=== PATIENT | female | born 1955 | race Hispanic/Latino ===

== ENCOUNTER 2022-12-28 14:04 | Inpatient (IN) | payer OTHER ==
[2023-01-02 13:57] VITALS: BMI 25.3
[2023-01-02] MEDS ORDERED: GLUCAGON 1 MG/VIAL IM PRN (14:07)
[2023-01-02] MEDS ORDERED: D10W 250 ML BAG IV PRN (14:07)
[2023-01-02] MEDS ORDERED: methocarbamoL 750 MG TAB PO PRN (14:16)
[2023-01-02] MEDS ORDERED: POLYETHYL GLY 3350 17 GM/DOSE PO PRN (14:18)
[2023-01-02] MEDS: INSULIN -REGULAR HUMAN 50 UNIT/0.5 ML ML SQ SCH ×2 (16:30→20:51)
[2023-01-02] MEDS: METFORMIN HCL 500 MG TAB PO SCH (17:02)
[2023-01-02] MEDS: ENOXAPARIN 40 MG/0.4 ML SQ SCH (17:02)
[2023-01-02] MEDS ORDERED: levETIRAcetam 500 MG TAB PO SCH (20:00)
[2023-01-02] MEDS ORDERED: APIXABAN 2.5 MG TABLET PO SCH (20:00)
[2023-01-02] MEDS: DOCUSATE NA/SENNA CONC 1 TAB PO PRN (20:50)
[2023-01-02] MEDS: ATORVASTATIN 40 MG TAB PO SCH (20:51)
[2023-01-02] MEDS: levETIRAcetam 500 MG TAB PO SCH (20:51)
[2023-01-02] MEDS: PHENYTOIN ER 100 MG CAP PO SCH (20:51)
[2023-01-02] MEDS: LACOSAMIDE 50 MG TABLET PO SCH (20:51)
[2023-01-02] MEDS: CEPHALEXIN 250 MG CAP PO SCH (20:51)
[2023-01-02] MEDS ORDERED: CEPHALEXIN 250 MG CAP PO SCH (21:00)
[2023-01-02 23:45] LABS: Specific Gravity 1.007 (1.005-1.030); Urine Bacteria None Seen /HPF (<20); Urine Bilirubin NEGATIVE (Negative); Urine Blood Negative (Negative); Urine Clarity Clear (Clear); Urine Color Colorless (Yellow); Urine Glucose NEGATIVE (Negative); Urine Mucus Slight /HPF (None Seen); Urine Protein NEGATIVE (Negative); Urine RBC <5 /HPF (None Seen); Urine Urobilinogen Normal (Normal); Urine pH 6.5 (5.0-7.0)
[2023-01-03 06:40] LABS: Absolute Lymphocytes (CBC) 2.7 K/uL (0.7-4.9); Hematocrit 33.1 % (36.0-45.0); MCV 91.7 fL (80-100); MPV 7.2 fL (7.6-11.3); Platelets 434 thou/uL (152-406); RBC Red Blood Cell Count 3.61 M/uL (3.86-4.86)
[2023-01-03 07:14] LABS: Albumin 2.5 g/dL (3.4-5.0); Magnesium 1.8 mg/dL (1.6-2.4); Phenytoin (Dilantin) Level 13.8 mcg/mL (10.0-20.0); Potassium 3.9 mEq/L (3.5-5.1); Prealbumin 19.6 mg/dL (20-40)
[2023-01-03] MEDS: INSULIN -REGULAR HUMAN 50 UNIT/0.5 ML ML SQ SCH ×4 (07:30→19:21)
[2023-01-03] MEDS: INSULIN GLARGINE 100 UNIT/ML SQ SCH (07:40)
[2023-01-03] MEDS: LOSARTAN POTASSIUM 50 MG TABLET PO SCH (07:40)
[2023-01-03] MEDS: CEPHALEXIN 250 MG CAP PO SCH ×3 (07:41→19:20)
[2023-01-03] MEDS: levETIRAcetam 500 MG TAB PO SCH ×2 (07:41→19:20)
[2023-01-03] MEDS: PHENYTOIN ER 100 MG CAP PO SCH ×2 (07:41→19:21)
[2023-01-03] MEDS: LACOSAMIDE 50 MG TABLET PO SCH ×2 (07:41→19:21)
[2023-01-03] MEDS: ASPIRIN EC 81 MG TAB PO SCH (07:42)
[2023-01-03] MEDS: CYANOCOBALAMIN 1,000 MCG TAB PO SCH (07:42)
[2023-01-03] MEDS: METFORMIN HCL 500 MG TAB PO SCH ×2 (07:42→16:34)
[2023-01-03] MEDS ORDERED: INSULIN GLARGINE SQ SCH (08:00)
--- NOTE | 2023-01-03 16:29 | HP ---
Date of Admission: 01/02/2023 Time Of Service: 11:30 a.m. Chief Complaint: Multiple seizures. Patient's daughter is at the bedside and the patient is in the midst of aphasia following her seizure and is unable to give a clear answer. History Of Present Illness: Ms. Leslye Browning is a 67-year-old right-handed patient with hyp ertension, dyslipidemia, diabetes mellitus type 2, left temporal lobe epilepsy, recurrent cystitis, r ecent pulmonary embolus, and is currently on Eliquis, in addition to B12 deficiency and chronic confu marianela with multiple seizures and confusion following seizures. 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 The patient's daughter noted that she has had a recent prolonged seizure, came to the hospital and was loaded with Keppra, sent home and she however had worsening right-sided weak ness following the seizure and confusion. The patient's daughter says that when she has seizures, sh e may take up to a day to recover to her baseline where she can interact and follow simple commands. She used the arms and her legs where there is no obvious weakness from [id number]. She was seen e magdy in the hospital on September 04, where she had right-sided weakness with confusion and it was felt t o be due to a recent stroke and she did receive TNKase. MRI of the brain showed no acute or subacute infarct. However, the EEG showed a left hemispheric epileptogenic activity in the temporal lobe. S he was discharged and then readmitted on September 25 for more confusion, right upper extremity weakness on awakening, which was a more concerning for Jitendra's paralysis following seizure activity. She was d iagnosed with a urinary tract infection. She came back again on October 23 with another urinary tract infection and was discharged on the [address] scan showed no abnormalities. She had anot her scan that was negative CT scan on December 11, 2022. She was ruled out for an autoimmune encephali tis and paraneoplastic when her paraneoplastic markers were negative. The patient did have an EEG in mid November that showed a high degree of interictal left temporal lobe activity and she was loaded wi th Dilantin with fosphenytoin and Keppra 1500 mg twice daily along with Vimpat 200 mg twice daily and the Dilantin maintenance of 100 mg 3 times daily. She was noted to have myocardial injury and was p ut on Eliquis for a pulmonary embolus. She was found to have oropharyngeal dysphagia and was put n.p .o. and then was put on a tube feeding. She was cleared eventually and had a thickened liquid diet a nd chopped foods. She was put on insulin sliding scale for diabetes mellitus. She was in on the 13t h of December, transferred to [facility], but was only receiving therapy every other d ay. On the , she was found at night, soiled in her feces and attempting to get out of the bed. She reportedly had an unwitnessed fall and was confused and the patient's demanded she come t o the emergency room at [facility] where her workup showed elevated platelets and she had in creased risk of clotting. She had a risk of stroke and heart attack. She had some weakness and numb ness in the right side. Her creatinine was normal. Albumin slightly low. BUN unremarkable. She wa s medically cleared in the emergency room and due to her failure to thrive and prolonged and complica pepe hospitalization, was felt to be a more appropriate candidate for aggressive inpatient rehabilitat ion where her medical conditions can be monitored and she can have physical, occupational, and speech therapy and daily physician evaluation and management along with snf multiple times thro ughout the day, and she is therefore admitted to the inpatient rehabilitation unit. Past Medical History: Arthritis, diabetes mellitus, deviated nasal septum, cataract, depression, his tory of seizures, hypertension, peripheral neuropathy, dyslipidemia, otitis externa. She has a histo ry of status epilepticus previously, stress incontinence. Past Surgical History: She had in terms of surgery, salpingectomy and tubal ligation, cataract with intra-ocular lens replacement. Allergies: LISINOPRIL. Current Medications: Tylenol 500 mg every 4 hours as needed, aspirin 81 mg daily, Lipitor 40 mg at b edtime, Keflex 500 mg 3 times daily, vitamin B12 1000 mcg daily, Lovenox 40 mg subcutaneously daily, glucagon 1 IM as needed for low sugar, Semglee insulin 28 units daily, regular insulin sli ding scale, Vimpat 200 mg twice daily, Keppra 1500 mg twice daily, Cozaar 25 mg daily, melatonin 3 mg at bedtime, Glucophage 1000 mg twice daily, Robaxin 750 mg twice daily, Dilantin 200 mg twice daily, Senokot S 2 at night as needed. Family History: Noncontributory. Social History: Patient lives with her daughter. No alcohol, tobacco, or IV drug use. Laboratory Studies: White blood cell count 8.7, hemoglobin 11.7, hematocrit 33.1, platelets 434. Ch emistry: Sodium 139, potassium 3.9, chloride 108, carbon dioxide 31, BUN 6, creatinine 0.44, glucose ranged from 120 up to 170, calcium 8.5, magnesium 1.8, albumin 2.5, prealbumin 19.6. Urinalysis is normal. Toxicology: Dilantin level of 13.8 on the 17th, and the Keppra level is pending. Review of Systems: Currently, the patient is not responding with meaningful communication. She can say yes or no and sh e answers to her name. She had difficulty following simple commands. She was able to reach and atte mpt to shake hand when our hand was outstretched to her. Otherwise, she has a port-wine stain on her face and it is bilateral and it covers most of her face. Physical Examination: HEENT: She does appear to be normocephalic, atraumatic. Sclerae anicteric. Oropharynx moist. Neck: Supple. Chest: Clear. Heart: Regular. Extremities: Show no significant edema or cyanosis. The right hand is held more stiffly than the le ft with the fist mostly closed. Neurological: Again she is alert, oriented to self, not to place and time. She has difficulty follo wing simple commands. Cranial nerves 2 through 12 showed no focal deficits. Again, port-wine stain noted over the entire face. Motor exam difficult to fully assess. She does not appear to have focal weakness in the upper or lower extremities, although there is increased tone in the right upper and lower extremity. Reflexes increased on the right compared to the left. Sensation difficult to fully assess coordination. Movements appear smooth in upper and lower extremities. In terms of her gait, she ambulated with a gait belt. Current Level Of Functioning: Currently, dependent for eating, moderate assistance for oral hygiene, contact guard for toilet hygiene. Moderate assistance for showering, upper body dressing, max was a t the lower body dressing and donning of footwear. Moderate assistance for rolling cjlje-gh-gbbv and nawq-ro-ulwfn. Moderate assist for sitting to lying and lying to sitting and sit to stand. Toilet transfers, moderate assistance to ambulation, moderate assistance with a rolling walker covering 50 f eet, stairs 1 step, total assistance. Rehabilitation And Medical Assessment And Plan: Ms. Browning is admitted to the rehabilitation unit w ith impairment category 03, brain dysfunction, nontraumatic. Her impairment group code is 02.1, nont raumatic, and her etiologic diagnosis is left temporoparietal occipital location epilepsy. 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 Plan: 1.She will have physical, occupational, and speech therapy for 3.5 hours, 5 of 7 days. 2.For diabetes mellitus, she will have Semglee insulin currently 28 units daily along with metformin 1000 mg twice daily. For her epilepsy, she will have phenytoin 200 mg twice daily, Vimpat 200 mg tw ice daily, and Keppra 1500 mg twice daily. For her stroke and DVT risk mitigation, Lovenox 40 mg sub cutaneously daily. For low B12 level, she will have vitamin B12 1000 mcg daily. She will continue K eflex 500 mg 3 times daily 5 days. For dyslipidemia, Lipitor 40 mg at bedtime, and for st roke risk reduction, aspirin 81 mg daily. Impact Of Comorbidities: She does have a history of cognitive impairment of unclear etiology. Howev er, she does have repeated seizures and a very active focus in the left temporoparietal occipital reg ion. It is possible this is a disruptive focus which impairs her ability to comprehend and express s peech. 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 Those will be addressed by adjusting antiepileptic medications as appropriate and if nee d be, the patient may have to be transferred for EEG monitoring. Otherwise, blood sugars are well controlled. Blood pressures are well controlled. Those will be car efully monitored and risk of recurrent infection is there. She will have if need be timed voidings. She is on antibiotics, I will continue. Rehab Specific Plan: 1.Ms. Browning will have 3.5 hours a day of physical, occupational, and speech therapy for 5 of 7 day s. This will help to improve her ability to comprehend and express herself to follow instructions an d make safe decisions and to swallow different consistencies such as thick consistencies, thin liquid s and solids without aspiration. 2.She will have physical therapy to improve her balance or gait or coordination or endurance, her ab ility to ambulate more than household distances and go up and down at least 10 steps and she should b e able to ambulate 250 feet with independence. 3.With occupational therapy, she will be able to don and doff her clothes and shoes, transfer to the toilet, to the shower, and perform toileting and showering, perform oral hygiene and to manage all o f her activities of daily living with modified independence with dependence. 4.She will have snf to address all the medications as noted and to assess vitals appropr iately and to do blood draws as appropriate. 5.She will have daily physician evaluation and management to manage all of the medical conditions as noted. 6.Ms. Browning and her daughter have a good understanding of the process of admission to the [facility] facility and she has a potential to make good improvement and will receive physical, occupational, and speech therapy. If need be, consultation from the ID service, diabetic teaching, and the cardiology service will be consulted. Given her complex medical condition and risk of furthe r complications, rehabilitation cannot be safely or effectively provided at a lower level facility aponte ch as snf. Barriers To Discharge: Currently, her cognitive issues may pose a barrier, but she has good family s upport. Also the risk of seizures and recurrent infections may pose an issue, but those will be miti gated by very careful evaluation and management. Estimated Length Of Stay: About 10 to 12 days. Disposition: Home with family. Prognosis: Good. Rehabilitation Goals: 1.Become independent with upper and lower body dressing, transferring, toileting, showering. 2.With independence, covered 250 feet with a rolling walker. 3.With independence, going up and down 10 steps. 4.With independence, perform all her cognitive functioning, her speech or swallowing, her judgment. 5.To have all the snf to be done properly and physician evaluation and management to be done on a timely basis. The above goals were reviewed with Ms. Browning and her daughter and she is in agreement. I acknowledge I personally performed a full physical examination on Ms. Browning no later than 24 hour s after admission to the inpatient rehabilitation facility and determined that she is able to tolerat e the above course of treatment at an intensive level for reasonable period of time. A detailed kaleigh vidualized plan of care for her will be completed by hospital day 4 based on the preadmission screen, history and physical, and therapy evaluations. LADONNA Voice ID: [id number]
[2023-01-03] MEDS: ENOXAPARIN 40 MG/0.4 ML SQ SCH (16:34)
[2023-01-03] MEDS: ATORVASTATIN 40 MG TAB PO SCH (19:21)
[2023-01-04] MEDS: INSULIN -REGULAR HUMAN 50 UNIT/0.5 ML ML SQ SCH ×4 (06:37→20:29)
[2023-01-04] MEDS: LACOSAMIDE 50 MG TABLET PO SCH ×2 (09:16→20:28)
[2023-01-04] MEDS: levETIRAcetam 500 MG TAB PO SCH ×2 (09:16→20:28)
[2023-01-04] MEDS: CEPHALEXIN 250 MG CAP PO SCH ×2 (09:16→14:19)
[2023-01-04] MEDS: LOSARTAN POTASSIUM 50 MG TABLET PO SCH (09:18)
[2023-01-04] MEDS: CYANOCOBALAMIN 1,000 MCG TAB PO SCH (09:18)
[2023-01-04] MEDS: ASPIRIN EC 81 MG TAB PO SCH (09:18)
[2023-01-04] MEDS: METFORMIN HCL 500 MG TAB PO SCH ×2 (09:19→17:00)
[2023-01-04] MEDS: PHENYTOIN ER 100 MG CAP PO SCH ×2 (09:19→20:28)
[2023-01-04] MEDS: INSULIN GLARGINE 100 UNIT/ML SQ SCH (09:53)
[2023-01-04] MEDS: ENOXAPARIN 40 MG/0.4 ML SQ SCH (16:23)
[2023-01-04] MEDS: ATORVASTATIN 40 MG TAB PO SCH (20:28)
--- NOTE | 2023-01-05 01:19 | PN ---
Date of Progress Note: 01/04/2023 Usvd-zj-ailc progress note visit. Time Of Service: 1:50 p.m. Subjective: Ms. Browning is doing well. No evidence of any seizures. She has no new complaints. No fevers or chills and no other concerns. Review of Systems: No myalgias or arthralgias. No rash. No psychiatric issues. No gastrointestinal issues. She still has some difficulty moving the right upper extremity, which she had mostly holds across her chest, t he hand, somewhat close but not tightly. Physical Examination: Vital Signs: Blood pressure 140/65, pulse of 53, respiratory rate 16, temperature 97.6, oxygen satur ation 94%. General: Ms. Browning is resting in bed. She appears to be in no acute distress. Extremities: As noted, the right arm is held across her chest area with flexion of the wrist and the fingers held closed, but when asked to move the hand, she can. When the hand is held up, she actual ly can voluntarily move it and lift the wrist and extend the fingers. Otherwise, she has no focal de ficits. Lungs: Clear to auscultation. Heart: Regular. Abdomen: Soft. Laboratory Studies: White blood cell count 8.7, hemoglobin 11.5, hematocrit 31.1, platelets 434. He r glucose ranged from 104 to 186. Sodium 139, potassium 3.9, chloride 108, carbon dioxide 31, BUN 6, creatinine 0.44, calcium 8.5, magnesium 1.8. Prealbumin 2.5, albumin 19.6. Urinalysis is completel y normal and her phenytoin level on the is 13.8. Keppra level is pending. X-ray Imaging: No x-rays or imaging. Medications: Tylenol 500 mg every 4 hours as needed, aspirin 81 mg daily, Lipitor 40 mg at bedtime, vitamin B12 1000 mcg daily, Lovenox 40 mg subcutaneously daily, Semglee insulin 20 units daily, Vimpa t 200 mg twice daily, Keppra 1500 mg twice daily, losartan 25 mg daily, melatonin 3 at bedtime, Gluco phage 1000 mg twice daily, 750 mg daily, Dilantin 200 mg twice daily, Senokot-S 2 at bedti me. Current Functional Status: Today, toileting was at a maximal assist level, bathing was dependent, up per body dressing required partial minimum assistance. Her supine sit was done independently while u sing bed rails. Today, she completed gait training, walking 150 feet with moderate assistance and an other 100 feet with minimal assistance using a rolling walker, self-propelled wheelchair 50 feet with maximum assistance. Her speech therapy, she scored 7/15 on BIMS and 1/30 on the SLUMS, suggestive o f a severe cognitive deficits. Progress Towards Rehabilitation Goals: Ms. Browning is making very slow progress with cognitive impro vement. She is not able to follow commands significantly. Has difficulty with mobilization, with ga it and wheelchair transfer and transfer from bed to toilet as well. She does have significant cognit fausto impairment, perhaps a combination of having an active focus in the left hemisphere, that is a sei zure focus, which can disrupt memory formation and language expression and comprehension. She is on multiple 3 heavy doses of antiepileptic medications. She is again making better progress with physic al therapy and occupational and speech therapy. Assessment: Ms. Browning is a 67-year-old patient in the rehabilitation unit with a likely left tempo ral lobe epilepsy with left parietal occipital involvement causing significant difficulty with commun ication, comprehension, and expression. She has some difficulty with right-sided paresis related to her focus of epilepsy. Blood sugars are slightly uncontrolled. Her blood pressures as well, now in better control. Plan: She will continue with physical, occupational, speech therapy for 3.5 hours, 5 of 7 days. She will continue with aspirin 81 mg daily for stroke risk reduction, Lipitor 40 mg at bedtime for dysli pidemia, vitamin B12 1000 mcg daily for stimulation and keeping her more awake and alert. Continue w ith Lovenox 40 mg subcutaneously for DVT prophylaxis. For diabetes mellitus, Semglee insulin 20 unit s at bedtime and regular insulin sliding scale, Keppra 1500 mg twice daily along with lacosamide 200 mg twice daily and phenytoin 200 mg twice daily for seizure risk reduction. Metformin 1000 mg twice daily for diabetes mellitus and methocarbamol 750 mg twice daily for muscle spasms. Comorbidities That Continue To Impact Rehabilitation Process: She does have significant difficulty w ith her communication, again because of the location of her active focus of epileptiform discharges a nd it is difficult for her to be able to follow commands. She will require an extended period of aure e and direct supervision 24 hours a day, 7 days a week to help keep her safe and to encourage her to improve. She, however, at times is able to communicate better than others, which is again consistent with a fluctuating focus of epileptiform discharges in the left temporal region. SUNIL/OCTAVIO Voice ID: [id number] Report ID: [id number]
[2023-01-05] MEDS: INSULIN -REGULAR HUMAN 50 UNIT/0.5 ML ML SQ SCH ×4 (06:39→19:55)
[2023-01-05] MEDS: INSULIN GLARGINE 100 UNIT/ML SQ SCH (08:00)
[2023-01-05] MEDS: LACOSAMIDE 50 MG TABLET PO SCH ×2 (08:26→19:18)
[2023-01-05] MEDS: PHENYTOIN ER 100 MG CAP PO SCH ×2 (08:27→19:18)
[2023-01-05] MEDS: ASPIRIN EC 81 MG TAB PO SCH (08:28)
[2023-01-05] MEDS: levETIRAcetam 500 MG TAB PO SCH ×2 (08:28→19:19)
[2023-01-05] MEDS: METFORMIN HCL 500 MG TAB PO SCH ×2 (08:31→17:22)
[2023-01-05] MEDS: LOSARTAN POTASSIUM 50 MG TABLET PO SCH (08:32)
[2023-01-05] MEDS: CYANOCOBALAMIN 1,000 MCG TAB PO SCH (08:32)
[2023-01-05] MEDS: ACETAMINOPHEN 500 MG TAB PO PRN (10:56)
--- NOTE | 2023-01-05 11:24 | RAD REPORT ---
EXAM DESCRIPTION: CT - Head Brain Wo Cont - 01/05/2023 10:40 am CLINICAL HISTORY: post fall COMPARISON: HEAD BRAIN W O CONTRAST dated 03/17/2014; HEAD BRAIN W O CONTRAST dated 11/01/2012 TECHNIQUE: Noncontrast head CT images were obtained without IV contrast. Multiplanar reformats were generated and reviewed. All CT scans are performed using dose optimization technique as appropriate and may include automated exposure control or mA/KV adjustment according to patient size. FINDINGS: No intracranial hemorrhage, mass, or edema. Midline structures are unremarkable. Mild diffuse parenchymal volume loss. No hydrocephalus. Rodriguez-white matter differentiation is preserved, without evidence of acute infarct. No abnormal extra- axial fluid collections. Mastoid air cells and visualized portions of the paranasal sinuses are clear. Right parietal scalp swelling and small hematoma. No acute bony findings. IMPRESSION: Right parietal scalp swelling and small hematoma. No other evidence of an acute intracra nial process.
[2023-01-05] MEDS ORDERED: LOPERAMIDE HCL 2 MG CAPSULE PO PRN (12:01)
[2023-01-05] MEDS: ENOXAPARIN 40 MG/0.4 ML SQ SCH (17:51)
[2023-01-05] MEDS: ATORVASTATIN 40 MG TAB PO SCH (19:18)
--- NOTE | 2023-01-05 22:51 | PN ---
Date of Progress Note: 01/05/2023 Time Of Service: 1:20 p.m. Subjective: Ms. Browning is doing well in bed. She did slip and fall today while in the shower. She bumped the right top portion of her head and has a hematoma there. She had a head CT scan noncontra st after the fall, with which there was no loss of consciousness. She was again in the shower and a slight bump her head onto the tile or hard surface. The head CT scan was done at 10:40 a.m. on the 04 27, that showed a right scalp swelling, a small hematoma. There was no evidence of an acute intracr anial process and there was no bleeding. No skull fracture. No hydrocephalus. No midline shift. N o abnormalities therein. Review of Systems: She denies any double vision, loss of vision, headaches, stiff neck, focal findings such as changes o ther than her baseline in terms of her face and arm and leg weakness. She does have a long-standing issue with the right arm, which is possibly following an active epileptogenic focus in the left tempo ral region and parietal region. No other positives on review of systems. Physical Examination: Vital Signs: Blood pressure 133/60, pulse 59, respiratory rate 18, temperature 97, oxygen saturation 95%. General: Ms. Browning is resting in bed. She is in no significant distress. 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 She is alert and oriented to situation, place, and person. Follows commands appropriately. Extremities: She has again the right arm kind of bent across the chest. Hand is held in a closed fi st position. HEENT: She does have as noted a port wine stain over the left and right face, mostly covering the en tire face, sparing the forehead. Laboratory Studies: Today, blood sugars range of 93 to 140. X-ray/imaging: As noted head CT scan report. Medications: Medications have been reviewed and remained unchanged. Current Functional Status: Today, bed mobility was done with contact guard assistance. She did side -to-side scooting with contact guard to minimum assistance. She ambulated 450 feet with standby assi stance. There are no loss of balance. Self-propelled wheelchair 180 feet with minimum assistance. With speech therapy, she had simple yes/no questions related to immediate environmental issues and an swer of 80% accuracy. She was unable to name any category members of concrete categories with maximu m assistance. She name common objects in the room with 43% accuracy and maximum verbal cues. She wa s only oriented to city and day at the time of the speech pathologist evaluation. Progress Towards Rehabilitation Goals: Ms. Browning is most challenged with her cognitive issues and ability to be fully aware of what is happening, but making some progress there. She is making better progress, mobilizing with a rolling walker and wheelchair and performing activities of daily living. Assessment: Ms. Browning is a 67-year-old patient in the rehabilitation unit with a left parieto-occi pital and temporal lobe focus of epileptic activity reducing some aphasia, some difficulty with compr ehension and expression. She has mild difficulty mobilizing the right upper extremity. She has cody rbid hypertension, dyslipidemia, diabetes mellitus, again seizures, insomnia, and constipation. Plan: 1.Continue with physical, occupational, and speech therapy for 3.5 hours, 5 of 7 days. 2.She will continue with her 3 antiepileptic medications. 3.Continue with Senokot for constipation, melatonin for insomnia. Continue Cozaar for hypertension and Lipitor for dyslipidemia, aspirin 81 mg daily for stroke risk reduction, Lovenox 40 mg subcutaneo usly daily for DVT risk reduction. Comorbidities That Continue To Impact The Rehabilitation Process: She does have the potential for on going seizures and she has had again significant difficulty with interaction in terms of cognitive fu nctioning, forming memory and being oriented, likely related to the left temporal lobe involvement of the epileptic focus. Otherwise, she is doing well with terms of her comorbidities. They are not negatively impacting her rehabilitation. SUNIL/OCTAVIO Voice ID: [id number] Report ID: [id number]
[2023-01-06] MEDS: ACETAMINOPHEN 500 MG TAB PO PRN (06:09)
[2023-01-06] MEDS: INSULIN -REGULAR HUMAN 50 UNIT/0.5 ML ML SQ SCH ×4 (06:19→19:46)
[2023-01-06] MEDS ORDERED: INSULIN GLARGINE 100 UNIT/ML SQ SCH (08:00)
[2023-01-06] MEDS: PHENYTOIN ER 100 MG CAP PO SCH ×2 (08:48→19:47)
[2023-01-06] MEDS: ASPIRIN EC 81 MG TAB PO SCH (08:48)
[2023-01-06] MEDS: LOSARTAN POTASSIUM 50 MG TABLET PO SCH (08:48)
[2023-01-06] MEDS: CYANOCOBALAMIN 1,000 MCG TAB PO SCH (08:48)
[2023-01-06] MEDS: LACOSAMIDE 50 MG TABLET PO SCH ×2 (08:48→19:47)
[2023-01-06] MEDS: levETIRAcetam 500 MG TAB PO SCH ×2 (08:49→19:47)
[2023-01-06] MEDS: METFORMIN HCL 500 MG TAB PO SCH ×2 (08:49→16:25)
[2023-01-06] MEDS: ENOXAPARIN 40 MG/0.4 ML SQ SCH (16:25)
[2023-01-06] MEDS: ATORVASTATIN 40 MG TAB PO SCH (19:47)
--- NOTE | 2023-01-06 20:53 | PN ---
Date of Progress Note: 01/06/2023 Time Of Service: 1:37 p.m. Subjective: Ms. Browning is resting in bed. Speech Pathology at the bedside. She denies any headach es, any significant changes in her vision as she did bump her head yesterday and had negative head CT scan for any intracranial abnormalities. She did have a scalp hematoma. She has no new complaints today. Review of Systems: No fevers, chills, nausea, or vomiting. No stiff neck. No significant myalgias or arthralgias. She does have some difficulty with coordination and strength to the right upper extremity. Physical Examination: Vital Signs: Blood pressure 137/65, pulse 58, respiratory rate 16, temperature 97.2, oxygen saturati on 94%. General: Ms. Browning is lying in bed, in no significant distress. HEENT: Again, she has the port-wine stain over the almost entire face except sparing her forehead re gion. Extremities: She has right upper extremity held across the chest mostly but can move the arm volunta rily, but there is some increased tone and some more fist-like grasp of the right hand. Otherwise, n o new findings on her examination. Laboratory Studies: Blood sugars ranged from 166 to 263. X-ray/imaging: No new x-rays or imaging. Medications: Have been reviewed and remained unchanged. Current Functional Status: With her physical therapy, she did gait training with contact guard to st andby assistance with no loss of balance, covering over 500 feet and then another 165 feet with a Talkwheel walker. She self propelled a wheelchair 250 feet with supervision. Bed mobility done with samantha dby assistance including [id number] transfers and [id number] transfers. With speech therapy, avril demonstrated improved word finding skills, confrontational naming accuracy. Yes/no ques tions regarding immediate environmental issues were answered with 90% accuracy. With occupational th erapy; [id number], standby assistance. Lower body dressing, minimal assistance. Grooming, superv ision. Progress Towards Rehabilitation Goals: Ms. Browning is making great progress towards her goals of bec oming independent with upper and lower body dressing, transferring, toileting, showering, and ambulat ing 250 feet with modified independence and going up and down 10 steps with modified independence and performing cognitive functioning with modified independence. Assessment And Plan: Ms. 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 She is making great progress with her physical and occupational therapy. She has hypertension, dyslipidemia, diabetes mellitus, insomnia, constipation, and seizures which are con trolled. Plan: 1.Continue with physical, occupational, and speech therapy for 3.5 hours, 5 of 7 days. 2.Her multiple comorbid conditions are treated by medications as noted above and she has Lovenox 40 mg daily for DVT prophylaxis, aspirin 81 mg daily for stroke risk reduction. Continue Keppra for sei zures. Comorbidities That Continue To Impact Her Rehabilitation: Currently, she is doing well. No evidence of any ongoing seizures. It is well controlled. No evidence of any stroke and her comorbidities ar e managed well and are not negatively impacting her rehabilitation progress. SUNIL/OCTAVIO Voice ID: [id number] Report ID: [id number]
[2023-01-07 04:22] LABS: Absolute Lymphocytes (CBC) 2.9 K/uL (0.7-4.9); Hematocrit 32.3 % (36.0-45.0); MCV 92.2 fL (80-100); MPV 7.4 fL (7.6-11.3); Platelets 309 thou/uL (152-406)
[2023-01-07 04:44] LABS: Albumin 2.6 g/dL (3.4-5.0); Magnesium 1.5 mg/dL (1.6-2.4); Potassium 3.7 mEq/L (3.5-5.1); Prealbumin 16.2 mg/dL (20-40)
[2023-01-07] MEDS ORDERED: MAGNESIUM OXIDE 400 MG TAB PO ONE (05:31)
[2023-01-07] MEDS: ACETAMINOPHEN 500 MG TAB PO PRN ×2 (07:09→19:20)
[2023-01-07] MEDS: INSULIN -REGULAR HUMAN 50 UNIT/0.5 ML ML SQ SCH ×4 (07:30→19:51)
[2023-01-07] MEDS: LOSARTAN POTASSIUM 50 MG TABLET PO SCH (07:48)
[2023-01-07] MEDS: LIDOCAINE 4% PATCH TOP SCH (07:48)
[2023-01-07] MEDS: LACOSAMIDE 50 MG TABLET PO SCH ×2 (07:48→19:20)
[2023-01-07] MEDS: CYANOCOBALAMIN 1,000 MCG TAB PO SCH (07:48)
[2023-01-07] MEDS: ASPIRIN EC 81 MG TAB PO SCH (07:48)
[2023-01-07] MEDS: levETIRAcetam 500 MG TAB PO SCH ×2 (07:49→19:20)
[2023-01-07] MEDS: METFORMIN HCL 500 MG TAB PO SCH ×2 (07:49→16:59)
[2023-01-07] MEDS: PHENYTOIN ER 100 MG CAP PO SCH ×2 (07:49→19:20)
[2023-01-07] MEDS: INSULIN GLARGINE 100 UNIT/ML SQ SCH (07:49)
[2023-01-07] MEDS: ENOXAPARIN 40 MG/0.4 ML SQ SCH (16:58)
[2023-01-07] MEDS: MAGNESIUM OXIDE 400 MG TAB PO SCH (19:19)
[2023-01-07] MEDS: ATORVASTATIN 40 MG TAB PO SCH (19:19)
[2023-01-07] MEDS: MELATONIN 3 MG TABLET PO PRN (19:20)
[2023-01-07] MEDS: DOCUSATE NA/SENNA CONC 1 TAB PO PRN (19:20)
--- NOTE | 2023-01-07 19:33 | PN ---
Date of Progress Note: 01/07/2023 Time Of Service: 1:25 p.m. Subjective: Ms. Browning is resting in bed with speech pathologist at the bedside. She has family al so. She has no headaches. She denies any issues such as vision change, any worsening issues in term s of the right or left upper and lower extremities. Review of Systems: No fevers, chills. No myalgias, arthralgias. No rash. No other complaints. Physical Examination: Vital Signs: Blood pressure 131/59, pulse 56, respiratory rate 16, temperature 96.7, oxygen saturati on 95%. General: Ms. Browning again is resting in bed. Extremities: She has port-wine stain noted over the left and right face, sparing her forehead. She has an improved smaller sized hematoma in the top of the hand where she bumped her head a few days ag o. Otherwise, she is normocephalic, atraumatic. She has improved movements in of the rig ht upper extremity which she now holds at the side of her bed instead across the chest, which she had done for a few days. The right hand is opening and closing much easier. It should be noted she is following commands much easier. Good spontaneous speech, more appropriate. She has no new examinati on findings such as any other focal weakness or deficits. Laboratory Studies: White blood cell count 6.9, hemoglobin 11.3, platelets 309. Sodium 139, potassi um 3.7, chloride 104, BUN 7, creatinine 0.41, glucose ranged from 130 to 294, calcium 8.3, magnesium 1.5, albumin 2.6, prealbumin 16.2. X-rays/imaging: No new x-rays or imaging. It should be noted that with her low magnesium, she did receive 800 mg magnesium oxide x1 and then 40 0 mg twice daily. We are going to recheck in a few days. Medications: As noted, magnesium oxide 400 mg twice daily, metformin 500 mg twice daily, methocarbam ol 750 mg twice daily, phenytoin extended release 200 mg twice daily, levetiracetam 1500 mg twice jay jay ly, Lovenox 40 mg subcutaneously daily, atorvastatin 40 mg at bedtime, aspirin 81 mg daily, and lacos amide 200 mg twice daily. Current Functional Status: Ms. Browning was able to dry and wash 10 of 10 body parts with extra time with her upper body dressing with setup assistance. Donning and doffing, put over a shirt with verba l cues for orientation. Lower body dressing done with minimum assistance, [id number] with supervis ion to standby assistance. Shower transfer was at a supervision level. With her speech, she demonst rated confrontational naming with 90% accuracy with maximal verbal cues. She has no questions, answe red with 90% accuracy without cues. She demonstrated divergent naming of 1 item per concrete categor y with 80% accuracy. Regarding her physical therapy, she ambulated 500 feet and 165 feet with a roll ing walker and no loss of balance. She had contact guard assistance. She self propelled a wheelchai r 250 feet with supervision. Progress Towards Rehabilitation Goals: Ms. Browning is making excellent progress towards her mobiliza tion goals with walker and wheelchair, making also great progress with her speech therapy and with oc cupational therapy in terms of her activities of daily living, transfers, donning and doffing of clot hes. Assessment: Ms. Browning is a 67-year-old patient, in the rehabilitation unit with a left parietal-oc cipital epileptic focus, who was doing well and without any seizure activity. She is doing very well with her physical, occupational, and speech therapy. She has hypertension, dyslipidemia, diabetes m ellitus, insomnia, constipation, and controlled seizures. Plan: 1.Continue with physical, occupational, and speech therapy for 3.5 hours, 5 of 7 days. 2.She continues her antiepileptic medications as noted. Continues DVT prophylaxis, continues medica tions, magnesium replacement as noted magnesium oxide and for constipation and stroke risk reduction. Comorbidities That Continue To Impact Her Rehabilitation: She has a history of seizures which are co ntrolled with 3 antiepileptic medications currently. She has electrolyte abnormalities, also being r eplaced and they are not negatively impacting her rehabilitation. She did have a fall and a CT scan was done after her fall. No intracranial abnormalities. A scalp hematoma was noted and that is not negatively impacting her rehabilitation. LB/MODL Voice ID: [id number] Report ID: [id number]
[2023-01-08 03:48] LABS: Magnesium 1.8 mg/dL (1.6-2.4); Potassium 3.8 mEq/L (3.5-5.1)
[2023-01-08] MEDS: INSULIN -REGULAR HUMAN 50 UNIT/0.5 ML ML SQ SCH ×4 (07:01→20:18)
[2023-01-08] MEDS: LIDOCAINE 4% PATCH TOP SCH (08:03)
[2023-01-08] MEDS: METFORMIN HCL 500 MG TAB PO SCH ×2 (08:03→16:53)
[2023-01-08] MEDS: levETIRAcetam 500 MG TAB PO SCH ×2 (08:03→20:13)
[2023-01-08] MEDS: LOSARTAN POTASSIUM 50 MG TABLET PO SCH (08:04)
[2023-01-08] MEDS: CYANOCOBALAMIN 1,000 MCG TAB PO SCH (08:04)
[2023-01-08] MEDS: LACOSAMIDE 50 MG TABLET PO SCH ×2 (08:04→20:12)
[2023-01-08] MEDS: PHENYTOIN ER 100 MG CAP PO SCH ×2 (08:04→20:12)
[2023-01-08] MEDS: ASPIRIN EC 81 MG TAB PO SCH (08:05)
[2023-01-08] MEDS: MAGNESIUM OXIDE 400 MG TAB PO SCH ×2 (08:05→20:13)
[2023-01-08] MEDS: INSULIN GLARGINE 100 UNIT/ML SQ SCH (08:42)
--- NOTE | 2023-01-08 13:45 | P.RH.PN ---
Estimated Length of Stay: 14 Expected Discharge Date: 01/12/23 Discharge Disposition Plan: Home Family Support: Yes Alf Goal: Mobility, Transfers, Self Care Vital Signs: Last Vital Signs Temp 97.0 F 01/08/23 08:00 Pulse 57 01/08/23 08:00 Resp 16 01/08/23 08:00 BP 136/62 01/08/23 08:00 Pulse Ox 95 01/08/23 08:00 Laboratory: Laboratory Last Values WBC 6.90 thou/uL (4.3-10.9) 01/07/23 03:29 RBC 3.50 M/uL (3.86-4.86) L 01/07/23 03:29 Hgb 11.3 g/dL (12.0-15.0) L 01/07/23 03:29 Hct 32.3 % (36.0-45.0) L 01/07/23 03:29 MCV 92.2 fL (80-100) 01/07/23 03:29 MCH 32.4 pg (27.0-35.0) 01/07/23 03:29 MCHC 35.1 g/dL (32.0-36.0) 01/07/23 03:29 RDW 14.3 % (12.1-15.2) 01/07/23 03:29 Plt Count 309 thou/uL (152-406) 01/07/23 03:29 MPV 7.4 fL (7.6-11.3) L 01/07/23 03:29 Neutrophils % 48.1 % (41.7-73.7) 01/07/23 03:29 Lymphocytes % 42.0 % (15.3-44.8) 01/07/23 03:29 Monocytes % 6.5 % (3.3-12.3) 01/07/23 03:29 Eosinophils % 2.4 % (0-4.4) 01/07/23 03:29 Basophils % 1.0 % (0-1.3) 01/07/23 03:29 Absolute Neutrophils 3.3 K/uL (1.8-8.0) 01/07/23 03:29 Absolute Lymphocytes 2.9 K/uL (0.7-4.9) 01/07/23 03:29 Absolute Monocytes 0.4 K/uL (0.1-1.3) 01/07/23 03:29 Absolute Eosinophils 0.2 K/uL (0-0.5) 01/07/23 03:29 Absolute Basophils 0.1 K/uL (0-0.5) 01/07/23 03:29 Sodium 141 mEq/L (136-145) 01/08/23 03:21 Potassium 3.8 mEq/L (3.5-5.1) 01/08/23 03:21 Chloride 108 mEq/L (98-107) H 01/08/23 03:21 Carbon Dioxide 31 mEq/L (21-32) 01/08/23 03:21 Anion Gap 5.8 mEq/L (5.0-15.0) 01/08/23 03:21 BUN 8 mg/dL (7-18) 01/08/23 03:21 Creatinine 0.50 mg/dL (0.55-1.02) L 01/08/23 03:21 Est GFR (CKD-EPI) 103 ml/min (=/>90) 01/08/23 03:21 Glucose 137 mg/dL (74-106) H 01/08/23 03:21 POC Glucose 225 mg/dL (65-120) H 01/08/23 11:15 Calcium 8.7 mg/dL (8.5-10.1) 01/08/23 03:21 Magnesium 1.8 mg/dL (1.6-2.4) 01/08/23 03:21 Albumin 2.6 g/dL (3.4-5.0) L 01/07/23 03:29 Prealbumin 16.2 mg/dL (20-40) L 01/07/23 03:29 Urine Color Colorless (Yellow) 01/02/23 21:55 Urine Clarity Clear (Clear) 01/02/23 21:55 Urine pH 6.5 (5.0-7.0) 01/02/23 21:55 Ur Specific Brewster 1.007 (1.005-1.030) 01/02/23 21:55 Glucose (UA)(Auto) Negative (Negative) 01/02/23 21:55 Urine Ketones Negative (Negative) 01/02/23 21:55 Urine Blood Negative (Negative) 01/02/23 21:55 Urine Nitrite Negative (Negative) 01/02/23 21:55 Urine Bilirubin Negative (Negative) 01/02/23 21:55 Urine Urobilinogen Normal (Normal) 01/02/23 21:55 Ur Leukocyte Esterase Negative Keith/uL (Negative) 01/02/23 21:55 Urine RBC <5 /HPF (None Seen) 01/02/23 21:55 Urine WBC <5 /HPF (<5) 01/02/23 21:55 Ur Squamous Epith Cells <5 /HPF (None Seen) 01/02/23 21:55 Urine Bacteria None seen /HPF (<20) 01/02/23 21:55 Urine Mucus Slight /HPF (None Seen) 01/02/23 21:55 Urine Culture Reflexed Not needed 01/02/23 21:55 Urine Total Protein Negative (Negative) 01/02/23 21:55 Phenytoin 13.8 mcg/mL (10.0-20.0) 01/03/23 06:03 Levetiracetam 27.1 mcg/mL (6.0-46.0) 01/03/23 06:03 Weight: 138 lb 11.2 oz Wound Present: No Closed Surgical Incision Present: No Negative Pressure Wound Therapy Present: No Physician Update: Making fair progress overall. Labs reviewed and are stable. SLUMS 1, but she is getting better with speech. Better naming of objects. Walking 750' with rolling walker. Improved standing balance. Summary: Patient's care plan and snf goals have been reviewed and revised as necessary. Please see the Rehabilitation Signature page for all necessary signatures.
[2023-01-08] MEDS: ENOXAPARIN 40 MG/0.4 ML SQ SCH (16:52)
[2023-01-08] MEDS: DOCUSATE NA/SENNA CONC 1 TAB PO PRN (16:53)
[2023-01-08] MEDS: ATORVASTATIN 40 MG TAB PO SCH (20:13)
[2023-01-08] MEDS: MELATONIN 3 MG TABLET PO PRN (20:13)
[2023-01-09] MEDS: INSULIN -REGULAR HUMAN 50 UNIT/0.5 ML ML SQ SCH ×4 (06:59→20:07)
[2023-01-09] MEDS: LACOSAMIDE 50 MG TABLET PO SCH ×2 (07:58→19:57)
[2023-01-09] MEDS: LIDOCAINE 4% PATCH TOP SCH (08:00)
[2023-01-09] MEDS: PHENYTOIN ER 100 MG CAP PO SCH ×2 (08:02→19:56)
[2023-01-09] MEDS: levETIRAcetam 500 MG TAB PO SCH ×2 (08:03→19:57)
[2023-01-09] MEDS: MAGNESIUM OXIDE 400 MG TAB PO SCH ×2 (08:04→19:58)
[2023-01-09] MEDS: LOSARTAN POTASSIUM 50 MG TABLET PO SCH (08:04)
[2023-01-09] MEDS: ASPIRIN EC 81 MG TAB PO SCH (08:05)
[2023-01-09] MEDS: CYANOCOBALAMIN 1,000 MCG TAB PO SCH (08:05)
[2023-01-09] MEDS: METFORMIN HCL 500 MG TAB PO SCH ×2 (08:05→16:39)
[2023-01-09] MEDS: INSULIN GLARGINE 100 UNIT/ML SQ SCH (09:01)
[2023-01-09] MEDS: DOCUSATE NA/SENNA CONC 1 TAB PO SCH ×2 (09:01→19:56)
[2023-01-09] MEDS: ENOXAPARIN 40 MG/0.4 ML SQ SCH (16:39)
[2023-01-09] MEDS ORDERED: MAGNESIUM HYDROXIDE 8% 30 ML PO PRN (19:26)
[2023-01-09] MEDS: ATORVASTATIN 40 MG TAB PO SCH (19:57)
[2023-01-10] MEDS: INSULIN -REGULAR HUMAN 50 UNIT/0.5 ML ML SQ SCH ×4 (07:05→20:51)
[2023-01-10] MEDS: DOCUSATE NA/SENNA CONC 1 TAB PO SCH ×2 (08:00→19:20)
[2023-01-10] MEDS: ASPIRIN EC 81 MG TAB PO SCH (08:00)
[2023-01-10] MEDS: CYANOCOBALAMIN 1,000 MCG TAB PO SCH (08:00)
[2023-01-10] MEDS: LOSARTAN POTASSIUM 50 MG TABLET PO SCH (08:01)
[2023-01-10] MEDS: METFORMIN HCL 500 MG TAB PO SCH ×2 (08:01→17:07)
[2023-01-10] MEDS: LACOSAMIDE 50 MG TABLET PO SCH ×2 (08:01→19:20)
[2023-01-10] MEDS: PHENYTOIN ER 100 MG CAP PO SCH ×2 (08:02→19:20)
[2023-01-10] MEDS: levETIRAcetam 500 MG TAB PO SCH ×2 (08:02→19:19)
[2023-01-10] MEDS: MAGNESIUM OXIDE 400 MG TAB PO SCH ×2 (08:03→19:20)
[2023-01-10] MEDS: INSULIN GLARGINE 100 UNIT/ML SQ SCH (08:38)
[2023-01-10] MEDS: ENOXAPARIN 40 MG/0.4 ML SQ SCH (17:06)
[2023-01-10] MEDS: ATORVASTATIN 40 MG TAB PO SCH (19:20)
[2023-01-11] MEDS: INSULIN -REGULAR HUMAN 50 UNIT/0.5 ML ML SQ SCH ×4 (06:36→19:35)
[2023-01-11] MEDS: DOCUSATE NA/SENNA CONC 1 TAB PO SCH ×2 (08:00→19:26)
[2023-01-11] MEDS: CYANOCOBALAMIN 1,000 MCG TAB PO SCH (08:20)
[2023-01-11] MEDS: PHENYTOIN ER 100 MG CAP PO SCH ×2 (08:20→19:24)
[2023-01-11] MEDS: LOSARTAN POTASSIUM 50 MG TABLET PO SCH (08:20)
[2023-01-11] MEDS: LACOSAMIDE 50 MG TABLET PO SCH ×2 (08:21→19:25)
[2023-01-11] MEDS: METFORMIN HCL 500 MG TAB PO SCH ×2 (08:21→16:37)
[2023-01-11] MEDS: ASPIRIN EC 81 MG TAB PO SCH (08:22)
[2023-01-11] MEDS: levETIRAcetam 500 MG TAB PO SCH ×2 (08:24→19:25)
[2023-01-11] MEDS: INSULIN GLARGINE 100 UNIT/ML SQ SCH (08:57)
[2023-01-11] MEDS: MAGNESIUM OXIDE 400 MG TAB PO SCH ×2 (08:58→19:26)
[2023-01-11] MEDS: ENOXAPARIN 40 MG/0.4 ML SQ SCH (16:35)
[2023-01-11] MEDS: ATORVASTATIN 40 MG TAB PO SCH (19:26)
--- NOTE | 2023-01-11 20:36 | PN ---
Date of Progress Note: 01/11/2023 [id number] Progress Note Visit. Time Of Service: 1:35 p.m. Subjective: Ms. Browning is resting in bed, at bedside. She reports feeling better today abo ut her therapy, both speech therapy and physical as well as occupational therapy. She has no new com plaints. Review of Systems: She denies any significant changes such as fevers, chills, nausea, vomiting, myalgias, arthralgias, r cristina, or any other issues. Physical Examination: Vital Signs: Blood pressure 141/65, pulse 60, respiratory rate 16, temperature 97, oxygen saturation 92%. General: Ms. Browning is resting in bed. She has no change to the port-wine stains on her lower face , which is chronic. No more swelling noted in the right top of her head where she bumped her head se veral days ago. HEENT: She is atraumatic, normocephalic. She does have some dexterity issues in the right upper ext remity where she has a focus of a seizure activity in the left temporoparietal region affecting the a bility to easily move the right upper extremity with precision and proper force. Laboratory Studies: No new laboratory studies except blood glucose ranged from 116 to 179. X-ray/imaging: No new x-rays or imaging. Medications: Medications have been reviewed and remain unchanged. Current Functional Status: Today, with physical therapy she ambulated 750 feet with a rolling walker with standby assistance, then completed another 250 feet in the afternoon with a rolling walker. Shalini mackenzie was able to go up and down 5 steps twice with standby assistance. She mobilized a wheelchair 250 f eet with contact guard assistance. With occupational therapy, minimum assistance for lower body dres sing, standby assistance for applying shampoo in shoulders and to her head, actually she does her arden wering. Standby assistance for grooming as well. With speech therapy, she answered yes/no questions with 100% accuracy. Confrontational naming of pictures done with 70% accuracy. [place] category n aming 90% accuracy with maximum semantic cues. Progress Towards Rehabilitation Goals: Ms. Browning is making excellent progress towards her goals of becoming independent with upper and lower body dressing, transferring, toileting, showering, ambulat ing 500 feet with modified independence, up and down 10 steps with modified independence and performi ng cognitive functioning independently. Assessment: Ms. Browning is a 67-year-old patient with a left parieto-occipital and temporal lobe epi leptic focus from which she is actually doing very well with her therapy including physical, occupati onal, and speech therapy. She has comorbid hypertension, dyslipidemia, diabetes mellitus, insomnia, constipation, and seizures. Plan: 1.Continue with physical, occupational, and speech therapy for 3.5 hours, 5 of 7 days. 2.She has multiple comorbid conditions, which are addressed by continuing medication list which does include Senokot for constipation, Dilantin 200 mg twice daily for seizures. She also has 2 other me dications for seizures, Keppra 1500 mg twice daily, and Vimpat 200 mg twice daily. She has Semglee i nsulin 20 units daily for diabetes mellitus, Lovenox for DVT prophylaxis, Lipitor for dyslipidemia, a spirin for stroke risk reduction. Comorbidities That Continue To Impact The Rehabilitation Process: Currently her comorbidities are we ll managed and do not negatively impact her rehabilitation. SUNIL/OCTAVIO Voice ID: [id number] Report ID: [id number]
[2023-01-12] MEDS: INSULIN -REGULAR HUMAN 50 UNIT/0.5 ML ML SQ SCH ×4 (06:31→19:47)
[2023-01-12] MEDS: LACOSAMIDE 50 MG TABLET PO SCH ×2 (07:35→19:18)
[2023-01-12] MEDS: levETIRAcetam 500 MG TAB PO SCH ×2 (07:35→19:18)
[2023-01-12] MEDS: METFORMIN HCL 500 MG TAB PO SCH ×2 (07:35→17:00)
[2023-01-12] MEDS: ASPIRIN EC 81 MG TAB PO SCH (07:35)
[2023-01-12] MEDS: LOSARTAN POTASSIUM 50 MG TABLET PO SCH (07:36)
[2023-01-12] MEDS: PHENYTOIN ER 100 MG CAP PO SCH ×2 (07:36→19:18)
[2023-01-12] MEDS: CYANOCOBALAMIN 1,000 MCG TAB PO SCH (07:36)
[2023-01-12] MEDS: MAGNESIUM OXIDE 400 MG TAB PO SCH ×2 (07:36→19:19)
[2023-01-12] MEDS: DOCUSATE NA/SENNA CONC 1 TAB PO SCH ×2 (07:36→19:19)
[2023-01-12] MEDS: INSULIN GLARGINE 100 UNIT/ML SQ SCH (07:37)
[2023-01-12] MEDS: ENOXAPARIN 40 MG/0.4 ML SQ SCH (17:00)
[2023-01-12] MEDS: ATORVASTATIN 40 MG TAB PO SCH (19:18)
--- NOTE | 2023-01-12 22:04 | PN ---
Date of Progress Note: 01/12/2023 Time Of Service: 01:45 p.m. Subjective: Ms. Browning is resting in bed in between therapy sessions. She is feeling very well. S he has no complaints, giving thumbs up signs and smiling. Review of Systems: She has no fevers, chills, nausea, vomiting, myalgias, arthralgias. No rash, headache, weight change . No psychiatric issues. Physical Examination: Vital Signs: Blood pressure 131/60, pulse of 60, respiratory rate 16, temperature 97.3, oxygen satur ation 95%. General: Ms. Browning is resting in bed. She has a port-wine stain as noted on her face. She has im proved dexterity in the right upper extremity and some still stiffness noted, but no rhythmic activit y and no significant weakness there. No other findings on examination. Laboratory Studies: Her blood sugars range from 126 to 243. X-ray/imaging: No new x-rays or imaging. Medications: Her medications have been reviewed and remained unchanged. Current Functional Status: Today, with occupational therapy, she did sit to stand transfers with robyn oing verbal cues to reach back to sit. She did have some increased confusion to the progress. She d id do seated exercises in 3 planes, completing 15 repetitions and 2 sets to improve strength toleranc e. With physical therapy, she did 2 sets of 20 standing heel raises, 2 sets of 20 mini squats, and 2 sets of hip abduction exercises bilaterally. With gait, she ambulated 750 feet with a rolling walke r with standby assistance with no loss of balance or rest breaks needed. She ascended and descended 15 steps without break with standby assistance. With speech therapy, she did use confrontational nam ing for common objects, pictures with 86% accuracy which is increased from 70% on the previous sessio n. She did concrete naming category members with 90% accuracy and maximum verbal cues. Progress Towards Rehabilitation Goals: Ms. Browning is making very good progress towards her goals of becoming independent with upper and lower body dressing, toileting, transferring, ambulating now 750 feet with modified independence, up and down 15-20 steps with modified independence, and performing cognitive functioning with modified independence. Assessment And Plan: Ms. Browning is a 67-year-old patient with a seizure focus involving the left pa rietal, occipital, and temporal regions. She has some affect of the right upper and lower extremity and her ability to communicate that is both expression and comprehension. Comorbidities are dyslipid emia, hypertension, diabetes mellitus, insomnia, constipation, and seizures. Plan: 1.Continue with physical, occupational, speech therapy for 3.5 hours, 5 of 7 days. 2.Her comorbid conditions are managed by multiple medications that have been listed. Comorbidities That Continue To Impact Rehabilitation: Her comorbidities are not negatively impacting her rehabilitation and she is faring very well. SUNIL/OCTAVIO Voice ID: [id number] Report ID: [id number]
[2023-01-13] MEDS: INSULIN -REGULAR HUMAN 50 UNIT/0.5 ML ML SQ SCH ×4 (06:52→19:54)
[2023-01-13] MEDS: INSULIN GLARGINE 100 UNIT/ML SQ SCH (07:32)
[2023-01-13] MEDS: levETIRAcetam 500 MG TAB PO SCH ×2 (07:33→19:52)
[2023-01-13] MEDS: METFORMIN HCL 500 MG TAB PO SCH ×2 (07:33→16:33)
[2023-01-13] MEDS: PHENYTOIN ER 100 MG CAP PO SCH ×2 (07:33→19:52)
[2023-01-13] MEDS: CYANOCOBALAMIN 1,000 MCG TAB PO SCH (07:33)
[2023-01-13] MEDS: LACOSAMIDE 50 MG TABLET PO SCH ×2 (07:33→19:53)
[2023-01-13] MEDS: DOCUSATE NA/SENNA CONC 1 TAB PO SCH ×2 (07:34→19:52)
[2023-01-13] MEDS: MAGNESIUM OXIDE 400 MG TAB PO SCH ×2 (07:34→19:52)
[2023-01-13] MEDS: ASPIRIN EC 81 MG TAB PO SCH (07:34)
[2023-01-13] MEDS: LOSARTAN POTASSIUM 50 MG TABLET PO SCH (07:34)
[2023-01-13 14:25] LABS: Urine Bacteria None Seen /HPF (<20); Urine Bilirubin NEGATIVE (Negative); Urine Blood Negative (Negative); Urine Clarity Turbid (Clear); Urine Color Light-Yellow (Yellow); Urine Glucose 2+ (Negative); Urine Mucus Slight /HPF (None Seen); Urine Protein TRACE (Negative); Urine RBC <5 /HPF (None Seen); Urine Urobilinogen Normal (Normal)
[2023-01-13] MEDS: ENOXAPARIN 40 MG/0.4 ML SQ SCH (16:33)
[2023-01-13] MEDS: CRANBERRY FRUIT EXTRACT 200 MG CAP PO SCH (19:53)
[2023-01-13] MEDS: ATORVASTATIN 40 MG TAB PO SCH (19:53)
[2023-01-14 04:26] LABS: Absolute Lymphocytes (CBC) 2.3 K/uL (0.7-4.9); Hematocrit 34.8 % (36.0-45.0); Lymphocytes % 40.8 % (15.3-44.8); MCV 92.1 fL (80-100); MPV 7.6 fL (7.6-11.3); Platelets 264 thou/uL (152-406); RBC Red Blood Cell Count 3.78 M/uL (3.86-4.86)
[2023-01-14 04:46] LABS: Albumin 2.8 g/dL (3.4-5.0); Magnesium 1.7 mg/dL (1.6-2.4); Potassium 3.8 mEq/L (3.5-5.1); Prealbumin 15.8 mg/dL (20-40)
[2023-01-14] MEDS: INSULIN -REGULAR HUMAN 50 UNIT/0.5 ML ML SQ SCH (07:30)
[2023-01-14 07:33] VITALS: BP 124/58; TEMP 97
[2023-01-14] MEDS: MAGNESIUM OXIDE 400 MG TAB PO SCH (08:00)
[2023-01-14] MEDS: LOSARTAN POTASSIUM 50 MG TABLET PO SCH (08:00)
[2023-01-14] MEDS: ASPIRIN EC 81 MG TAB PO SCH (08:00)
[2023-01-14] MEDS: METFORMIN HCL 500 MG TAB PO SCH (08:00)
[2023-01-14] MEDS: INSULIN GLARGINE 100 UNIT/ML SQ SCH (08:00)
[2023-01-14] MEDS: CRANBERRY FRUIT EXTRACT 200 MG CAP PO SCH (08:00)
[2023-01-14] MEDS: PHENYTOIN ER 100 MG CAP PO SCH (08:00)
[2023-01-14] MEDS: CYANOCOBALAMIN 1,000 MCG TAB PO SCH (08:00)
[2023-01-14] MEDS: levETIRAcetam 500 MG TAB PO SCH (08:00)
[2023-01-14] MEDS: LACOSAMIDE 50 MG TABLET PO SCH (08:00)
[2023-01-14] MEDS: DOCUSATE NA/SENNA CONC 1 TAB PO SCH (08:00)
== END 2023-01-14 10:40 | disposition home health service (06) | DRG 92 ==
LOC: 5TH 01-02 13:30
PROVIDERS: ADMIT Psychiatry & Neurology Neurology with Special Qualifications in Child Neurology; ATTEND Psychiatry & Neurology Neurology with Special Qualifications in Child Neurology
DX: G83.84 Todd's paralysis (postepileptic) (principal); G40.802 Other epilepsy, not intractable, without status epilepticus; N39.0 Urinary tract infection, site not specified; R47.01 Aphasia; G81.91 Hemiplegia, unspecified affecting right dominant side; I10 Essential (primary) hypertension; E78.5 Hyperlipidemia, unspecified; E11.9 Type 2 diabetes mellitus without complications; Q82.5 Congenital non-neoplastic nevus; M19.90 Unspecified osteoarthritis, unspecified site; G62.9 Polyneuropathy, unspecified; R13.10 Dysphagia, unspecified; S00.03XA Contusion of scalp, initial encounter; W18.2XXA Fall in (into) shower or empty bathtub, initial encounter; Z91.81 History of falling; Y93.E1 Activity, personal bathing and showering; Y92.231 Patient bathroom in hospital as the place of occurrence of the external cause; G47.00 Insomnia, unspecified; K59.00 Constipation, unspecified
CPT/HCPCS: 36415; 70450; 71045; 71250; 72125; 80048; 80076; 80177; 80185; 81001; 82040; 82947; 83690; 83735; 83880; 84134; 84484; 85025; 85610; 87077; 87086; 87088; 87186; 92507; 92523; 93005; 96365; 96367; 96375; 97110; 97112; 97116; 97124; 97129; 97163; 97165; 97530; 97542; 97760; 99285; J0696; J1650; J1815; J1953; J2001; J3475; J7040; Q2009